=== PATIENT | female | born 2005 | race Caucasian/White ===

== ENCOUNTER 2023-02-17 11:51 | Emergency (ER) | payer BC, SELFPAY ==
[2023-02-17 12:04] VITALS: BP 122/86; PULSE 103; RESP 16; TEMP 35.9; O2SAT 100
--- NOTE | 2023-02-17 12:08 | ED.ANXIETY ---
HPI - Anxiety General Chief Complaint: Anxiety Stated Complaint: Cist on chest;Anxiety Time Seen by Provider: 02/17/23 12:05 Source: patient Mode of arrival: ambulatory Limitations: no limitations History of Present Illness HPI narrative: Tg is a 17-year-old female patient presenting to the clinic today with complaints of acute onset of anxiety and a cyst on her chest wall. She reports she has had this is of most of her life however it has become more painful over the last few days. States she had a panic attack last night because she was having pain around the cyst and felt as though she was going to . She reports she feels slightly anxious at this time but her anxiety has improved. No redness, swelling, drainage or erythema noted. Related Data Home Medications Medication Instructions Recorded Confirmed amitriptyline 10 mg tablet 10 mg PO DAILY 02/17/23 02/17/23 Allergies Allergy/AdvReac Type Severity Reaction Status Date / Time No Known Allergies Allergy Verified 02/17/23 12:05 Review of Systems Review of Systems: Pertinent positives per HPI. Patient denies any fever, chills, rash, headache, visual changes, dizziness, cough, runny nose, sore throat, shortness of breath, chest pain, palpitations, nausea, vomiting, diarrhea, constipation, abdominal pain, or any urinary issues. PMFSH Comments At the time of my signature, I reviewed and agree with the nursing past medical, surgical, social, and family history. There is no relevant family history pertinent to the patient complaint. Exam Narrative: General: Well-developed, obese, slightly anxious appearing Head: Normocephalic, atraumatic. Cardio: Regular rate and rhythm, s1 and s2 normal, no murmur appreciated. Resp: Clear to auscultation bilaterally, no rhonchi, rales, wheezing or rubs. Integumentary: [place], warm, and dry, 1 cm x 1 cm subcutaneous cyst to the anterior chest wall- within the top breast cleavage, firm and tender to palpate- dimpled area, no drainage, redness, or erythema. Course Course Emergency Course: Portions of this record may have been created with voice recognition software. Level of Care: Express Care Visit Vital Signs Vital signs: Vital signs reviewed MDM - Anxiety MDM Narrative Medical decision making narrative: At the time of visit patient is resting comfortably on the exam table. I suspect patient has a subcutaneous cyst to her anterior chest wall. Patient also has anxiety about the cyst. Recommend follow-up with her PCP to further investigate anxiety. Recommend follow-up with a general surgeon to discuss removal of systems as this is causing her pain and obvious anxiety. Supportive measures were discussed with the patient she voiced understanding of discharge instructions and agrees to treatment plan. Differential Diagnosis Differential diagnosis: Likely panic disorder, acute anxiety and other (Subcutaneous cyst to the anterior chest wall) Discharge Plan Discharge Clinical Impression: Acute anxiety, Cyst of skin Patient Disposition: Home, Self-Care Condition: Stable Instructions: Antibiotic Form, Anxiety (ED), Cyst (ED) Additional Instructions: I suspect you have a skin cyst to the anterior chest wall Surgical referral given-contact Dr. Leal office to discuss visit/evaluation May take Benadryl as needed for periods of anxiety-recommend follow-up with your PCP to further investigate this with blood work and screening Increase fluids and stay well hydrated May take Tylenol/Motrin as needed for pain Follow-up with your PCP next week Prescriptions: No Action amitriptyline 10 mg tablet 10 mg PO DAILY Follow-up/Referrals: Jade Chi MD [Physician] - 1 Day (Painful skin cyst to the anterior chest wall) PHYSICIAN,SECURITY ARCHITECT [Primary Care Provider] - Time of Disposition: 12:25 Quality NIHSS Nursing Documentation ED NIHSS nursing documentation: reviewed/agree
== END 2023-02-17 12:29 | disposition home or self-care (01) ==
PROVIDERS: Emergency Provider Nurse Practitioner Family
DX: F41.9 Anxiety disorder, unspecified (principal); L72.9 Follicular cyst of the skin and subcutaneous tissue, unspecified
CPT/HCPCS: 99212; G0463

== ENCOUNTER 2023-02-17 13:05 | Emergency (ER) | payer BC, SELFPAY ==
--- NOTE | ~2023-02-17 | XR_ITS ---
EXAMINATION: XR chest 2V DATE: 02/17/2023 14:25 INDICATION: Chest pain TECHNIQUE: PA and lateral views of the chest were obtained. COMPARISON: None FINDINGS: The lungs are clear with no focal airspace opacities, pulmonary edema, pleural effusion or pneumothor ax. The cardiomediastinal silhouette is normal. Mild thoracic levocurvature. 2.4 x 1.8 x 1.1 cm nodul ar density in the presternal soft tissues. IMPRESSION: 1. No acute cardiopulmonary disease. 2. 2.4 x 1.8 x 1.1 cm nodular density in the presternal soft tissues at the upper inner left breast. Consider ultrasound for further evaluation. Reviewed, dictated and finalized at location A. IMPRESSION: 1. No acute cardiopulmonary disease. 2. 2.4 x 1.8 x 1.1 cm nodular density in the presternal soft tissues at the upp er inner left breast. Consider ultrasound for further evaluation.
[2023-02-17 13:35] VITALS: BP 121/80; PULSE 84; RESP 18; TEMP 36.3; O2SAT 100
--- NOTE | 2023-02-17 13:38 | ECG_ITS ---
Measurements Intervals [place] Rate: 94 P: 59 OH: 142 QRS: 84 QRSD: 77 T: 52 QT: 329 QTc: 413 Interpretive Statements SINUS RHYTHM NORMAL ECG NO PREVIOUS ECG AVAILABLE FOR COMPARISON Electronically Signed On 02-17-2023 15:01:02 CDT by Brent Callaway M.D.
[2023-02-17 13:55] LABS: Basophils Percent Auto 0.4 % (0.2-1.2); Eosinophils Absolute Auto 0.1 K/mm3 (0-0.3); Eosinophils Percent Auto 1.4 % (0-4.4); Hematocrit 43.2 % (37.0-47.0); Hemoglobin 13.6 g/dL (12.0-15.0); Immature Granulocyte Absolute 0.01 K/mm3 (0.00-0.031); Immature Granulocyte Percent A 0.2 % (0-0.5); Lymphocytes Absolute Auto 1.51 K/mm3 (0.9-3.2); Lymphocytes Percent Auto 30.7 % (18.3-44.2); Mean Corpuscular HGB Conc 31.5 g/dl (32-36); Mean Corpuscular Hemoglobin 27.8 pg (26-34); Mean Corpuscular Volume 88.3 fl (80-100); Monocytes Absolute Auto 0.3 K/mm3 (0.1-0.6); Monocytes Percent Auto 5.3 % (2.6-8.5); Neutrophils Absolute Auto 3.1 K/mm3 (1.3-6.7); Platelet Count Result 204 k/mm3 (150-375); Red Blood Count 4.89 M/mm3 (4.2-5.4); Red Cell Distribution Width 13.6 % (11.5-14.5); White Blood Count 4.9 K/mm3 (4.5-10.0)
[2023-02-17 14:08] LABS: Alanine Aminotransferase 17 U/L (6-35); Albumin Level 4.5 g/dL (3.7-5.6); Alkaline Phosphatase 88 U/L (45-116); Anion Gap 9 mmol/L (8-16); Aspartate Amino Transferase 24 U/L (14-36); Bilirubin,Total 0.6 mg/dL (0.2-1.3); Blood Urea Nitrogen 14 mg/dL (8-21); Calcium 9.3 mg/dL (8.9-10.7); Carbon Dioxide 24 mmol/L (22-30); Chloride 106 mmol/L (98-107); Estimated CRCL calculation 153 ml/min; Estimated Glomerular Filt Rate > 60; Glucose 88 mg/dL (65-110); Lipase 49 U/L (23-300); Potassium 4.3 mmol/L (3.4-5.0); Sodium 139 mmol/L (134-143)
[2023-02-17 14:20] LABS: Troponin I < 0.012 ng/mL (0.000-0.034)
--- NOTE | 2023-02-17 14:53 | ED.CHESTPAIN ---
HPI - Chest Pain General Chief Complaint: Chest Pain Stated Complaint: chest pain Time Seen by Provider: 02/17/23 14:42 History of Present Illness HPI narrative: Pt presents with Cp since yesterday evening. Pt says when she thinks about it, it goes away and then she notices it again. Pt says she has a cyst near her breast bone and not sure if it is causing the pain. Pt has no risk factors. Related Data Home Medications Medication Instructions Recorded Confirmed amitriptyline 10 mg tablet 10 mg PO DAILY 02/17/23 02/17/23 Allergies Allergy/AdvReac Type Severity Reaction Status Date / Time No Known Allergies Allergy Verified 02/17/23 13:05 Review of Systems Review of Systems: All systems reviewed & are unremarkable except as noted in HPI and below Exam Const: General: healthy appearing Nutritional Appearance: well nourished Orientation/consciousness: patient oriented x3 Limitations: no limitations Chest: Chest palpation & inspection: normal inspection of the chest and tenderness (right upper chest intercostal muscles, cyst below this near stenum) Resp: Effort & Inspection: normal respiratory effort Cardio: Rate: regular rate Rhythm: regular rhythm GI: GI Palp: Yes Soft to palpation Auscultation: normal bowel sounds Skin: General skin exam: normal color Neuro: General: patient oriented x3, moves all extremities, no focal motor deficits and CN's II-XI intact bilaterally Speech: normal speech Extrem: General: normal to inspection and no clubbing, cyanosis or edema Psych: Mental Status: mental status grossly normal Affect: normal affect Course Vital Signs Vital signs: Vital Signs Temperature 97.3 F L 02/17/23 13:35 Pulse Rate 84 02/17/23 13:35 Respiratory Rate 18 02/17/23 13:35 Blood Pressure 121/80 02/17/23 13:35 Pulse Oximetry 100 02/17/23 13:35 Oxygen Delivery Room Air 02/17/23 13:35 Temperature 97.3 F L 02/17/23 13:35 Pulse Rate 84 02/17/23 13:35 Respiratory Rate 18 02/17/23 13:35 Blood Pressure 121/80 02/17/23 13:35 Pulse Oximetry 100 02/17/23 13:35 Oxygen Delivery Room Air 02/17/23 13:35 MDM - Chest Pain MDM Narrative Medical decision making narrative: seems very muscular labs and ekg and cxr to rule out serious issue. labs and cxr non acute Differential Diagnosis Differential diagnosis: Likely atypical chest pain, costochondritis and chest pain Lab Data 02/17/23 13:44 02/17/23 13:44 Labs: Lab Results 02/17/23 Range/Units 13:44 WBC 4.9 (4.5-10.0) K/mm3 RBC 4.89 (4.2-5.4) M/mm3 Hgb 13.6 (12.0-15.0) g/dL Hct 43.2 (37.0-47.0) % MCV 88.3 (80-100) fl MCH 27.8 (26-34) pg MCHC 31.5 L (32-36) g/dl RDW 13.6 (11.5-14.5) % Plt Count 204 (150-375) k/mm3 MPV 11.0 H (7.4-10.4) fl Immature Gran % (Auto) 0.2 (0-0.5) % Neut % (Auto) 62.0 (45.5-73.1) % Lymph % (Auto) 30.7 (18.3-44.2) % [place] % (Auto) 5.3 (2.6-8.5) % Eos % (Auto) 1.4 (0-4.4) % Baso % (Auto) 0.4 (0.2-1.2) % Lymph # (Auto) 1.51 (0.9-3.2) K/mm3 [place] # (Auto) 0.3 (0.1-0.6) K/mm3 Eos # (Auto) 0.1 (0-0.3) K/mm3 Baso # (Auto) 0.0 (0.0-0.1) K/mm3 Abs Immat Gran (auto) 0.01 (0.00-0.031) K/mm3 Absolute Neuts (auto) 3.1 (1.3-6.7) K/mm3 Absolute Nucleated RBC 0.0 (0.0-0.012) K/mm3 Nucleated RBC % 0.0 (0.0-0.2) % PT Cancelled INR Cancelled APTT Cancelled Sodium 139 (134-143) mmol/L Potassium 4.3 (3.4-5.0) mmol/L Chloride 106 (98-107) mmol/L Carbon Dioxide 24 (22-30) mmol/L Anion Gap 9 (8-16) mmol/L BUN 14 (8-21) mg/dL Creatinine 0.60 L (0.7-1.0) mg/dL Estim Creat Clear Calc 153 ml/min Estimated GFR > 60 (59 - ) Glucose 88 (65-110) mg/dL Calcium 9.3 (8.9-10.7) mg/dL Total Bilirubin 0.6 (0.2-1.3) mg/dL AST 24 (14-36) U/L ALT 17 (6-35) U/L Alkaline Phosphatase 88 (45-116) U/L Troponin I < 0.012 (0.000-0.034) ng/mL Total Protein 8
== END 2023-02-17 16:24 | disposition home or self-care (01) ==
LOC: ANHED 15:10
PROVIDERS: Emergency Provider Emergency Medicine
DX: R07.89 Other chest pain (principal); R92.8 Other abnormal and inconclusive findings on diagnostic imaging of breast
CPT/HCPCS: 36415; 71046; 80053; 83690; 84484; 85025; 85610; 85730; 93005; 99284

== ENCOUNTER 2023-08-06 14:09 | Emergency (ER) | payer BC, SELFPAY ==
--- NOTE | ~2023-08-06 | CT_ITS ---
EXAMINATION: CT abdomen pelvis w con DATE: 08/06/2023 17:08 INDICATION: Right mid and lower abdominal pain TECHNIQUE: Computed tomography (CT) of the abdomen and pelvis was performed with 100 cc Omnipaque 350 intravenous contrast. The dose-length product was 1210.12 mGy-cm. Automated exposure control and ite rative reconstruction technique were employed. COMPARISON: Chest dated 02/17/2023 FINDINGS: Heart size normal. No significant pleural or pericardial effusion. There is splenomegaly. S mall subcentimeter hypodensity of the left hepatic lobe, most likely phrygian cap of the gallbladder or cysts. The pancreas, adrenal glands and left kidney are unremarkable. There is a 2 mm nonobstructi ng right renal stone. Gallbladder is present. Nonobstructive bowel gas pattern. Normal appendix. No a bnormal pelvic masses or fluid collections. There is no significant pleural vascular abnormality or l ymphadenopathy. No free air or free fluid. No evidence for hernia. IMPRESSION: 1. Nonobstructing right nephrolithiasis. 2: Splenomegaly. Reviewed, dictated and finalized at location A.
[2023-08-06 14:09] VITALS: BP 117/77; PULSE 85; RESP 16; TEMP 36.3; O2SAT 100
--- NOTE | 2023-08-06 15:49 | ED.ABDPAIN ---
HPI - Abdominal Pain General Chief Complaint: Abdominal Pain <Cl Wagoner APRN - Last Filed: 08/06/23 18:16> Stated Complaint: abd pain <Cl Wagoner APRN - Last Filed: 08/06/23 18:16> Time Seen by Provider: 08/06/23 15:50 <Cl Wagoner APRN - Last Filed: 08/06/23 18:16> Focused HPI: Tg is a 18-year-old female patient presenting to the clinic today with complaints of lower abdominal pain radiating into right back with associated nausea and vomiting. General: Well-developed, well nourished, in no apparent distress. Head: Normocephalic, atraumatic. Cardio: Regular rate and rhythm, s1 and s2 normal, no murmur appreciated. Resp: Clear to auscultation bilaterally, no rhonchi, rales, wheezing or rubs. Abdomen: Soft, pliable, bowel sounds present in all quadrants, tender to palpation over the mid and writes that side of the abdomen no organomegly, no CVAT tenderness. Patient screened in triage and initial orders placed. Additional care and disposition to be based upon diagnostic testing and treatment. <Cl Wagoner APRN - Last Filed: 08/06/23 18:16> Source: patient <Cl Wagoner APRN - Last Filed: 08/06/23 18:16> Mode of arrival: ambulatory <Cl Wagoner APRN - Last Filed: 08/06/23 18:16> Limitations: no limitations <Cl Wagoner APRN - Last Filed: 08/06/23 18:16> History of Present Illness HPI narrative: The patient is a 18-year-old female who presents ER with left-sided abdominal pain. Began in the lower abdomen radiating into the right back. Associated nausea vomiting and was very intense. Only occurred a couple times. Has mild urinary frequency but no dysuria. Denies fevers or chills or sweats. No known sick contacts. No history of pyelonephritis or kidney stones. No history of ovarian cyst. Cannot identify any aggravating or alleviating factors. <Javi Pollard MD - Last Filed: 08/06/23 18:19> Related Data Home Medications: Home Medications Medication Instructions Recorded Confirmed amitriptyline 10 mg tablet 10 mg PO DAILY 02/17/23 02/17/23 <Cl Wagoner APRN - Last Filed: 08/06/23 18:16> Allergies/Adverse Reactions: Allergies Allergy/AdvReac Type Severity Reaction Status Date / Time No Known Allergies Allergy Verified 02/17/23 13:05 <Cl Wagoner APRN - Last Filed: 08/06/23 18:16> Review of Systems Review of Systems: All systems reviewed & are unremarkable except as noted in HPI and below <Javi Pollard MD - Last Filed: 08/06/23 18:19> Constitutional: Constitutional: Reports no additional constitutional complaints <Javi Pollard MD - Last Filed: 08/06/23 18:19> ENT: Reports system reviewed and no additional complaints, except as documented <Javi Pollard MD - Last Filed: 08/06/23 18:19> Cardiovascular: Cardiovascular: Reports no additional cardiovascular complaints <Javi Pollard MD - Last Filed: 08/06/23 18:19> Respiratory: Respiratory: Reports no additional respiratory complaints <Javi Pollard MD - Last Filed: 08/06/23 18:19> Gastrointestinal: Gastrointestinal: Reports abdominal pain, Reports nausea and Reports vomiting <Javi Pollard MD - Last Filed: 08/06/23 18:19> Genitourinary: Genitourinary: Reports as per HPI <Javi Pollard MD - Last Filed: 08/06/23 18:19> [facility] Past Medical History Medical History: Medical History (Updated 08/06/23 @ 18:18 by Javi Pollard MD) Healthy female adult <Cl Wagoner APRN - Last Filed: 08/06/23 18:16> Surgical History Surgical History: Surgical History (Updated 08/06/23 @ 18:18 by Javi Pollard MD) No pertinent past surgical history <Cl Wagoner APRN - Last Filed: 08/06/23 18:16> Comments At the time of my signature, I reviewed and agree with the nursing past medical, surgical, social, and family history. There is no releva
[2023-08-06 16:21] LABS: Appearance Urine Cloudy (Clear); Bacteria Urine 1+ /hpf; Bilirubin Urine Negative (Negative); Blood Urine 2+ (Negative); Color Urine Yellow (Yellow); Glucose Urine UA Negative (Negative); Ketones Urine Negative (Negative); Leukocyte Esterase Ur 1+ LEU/UL (Negative); Nitrate Urine Negative (Negative); Non Pathogenic Casts 0-2; Protein Urine Negative (Negative); Squamous Epithelial Cell Urine Few /hpf (Few); Urobilinogen Urine 0.2 mg/dL (<2.0); pH Urine 5.5 (5.0-9.0)
[2023-08-06 16:27] LABS: Basophils Percent Auto 0.3 % (0.2-1.2); Eosinophils Percent Auto 0.6 % (0-4.4); Hematocrit 40.7 % (37.0-47.0); Hemoglobin 13.2 g/dL (12.0-15.0); Immature Granulocyte Absolute 0.04 K/mm3 (0.00-0.031); Immature Granulocyte Percent A 0.6 % (0-0.5); Lymphocytes Absolute Auto 1.38 K/mm3 (0.9-3.2); Lymphocytes Percent Auto 21.1 % (18.3-44.2); Mean Corpuscular HGB Conc 32.4 g/dl (32-36); Mean Corpuscular Hemoglobin 28.4 pg (26-34); Mean Corpuscular Volume 87.7 fl (80-100); Mean Platelet Volume 11.5 fl (7.4-10.4); Monocytes Absolute Auto 0.3 K/mm3 (0.1-0.6); Monocytes Percent Auto 4.7 % (2.6-8.5); Neutrophils Absolute Auto 4.7 K/mm3 (1.3-6.7); Neutrophils Percent Auto 72.7 % (45.5-73.1); Platelet Count Result 224 k/mm3 (150-375); Red Blood Count 4.64 M/mm3 (4.2-5.4); Red Cell Distribution Width 13.2 % (11.5-14.5); White Blood Count 6.5 K/mm3 (4.5-10.0)
[2023-08-06 16:34] LABS: Alanine Aminotransferase 17 U/L (6-35); Albumin Level 4.5 g/dL (3.5-5.1); Alkaline Phosphatase 110 U/L (38-126); Anion Gap 7 mmol/L (4-12); Aspartate Amino Transferase 31 U/L (14-36); Bilirubin,Total 0.7 mg/dL (0.2-1.3); Blood Urea Nitrogen 10 mg/dL (7-17); Calcium 9.7 mg/dL (8.4-10.2); Carbon Dioxide 24 mmol/L (22-30); Chloride 108 mmol/L (98-107); Estimated CRCL calculation 688 ml/min; Estimated Glomerular Filt Rate > 60; Glucose 94 mg/dL (65-110); Lipase 57 U/L (23-300); Potassium 4.2 mmol/L (3.4-5.0); Sodium 139 mmol/L (137-145)
[2023-08-06 16:36] LABS: Add Urine Microscopic? YES
== END 2023-08-06 18:23 | disposition home or self-care (01) ==
PROVIDERS: Nurse Practitioner Family; Emergency Provider Emergency Medicine
DX: N39.0 Urinary tract infection, site not specified (principal); R16.1 Splenomegaly, not elsewhere classified; N20.0 Calculus of kidney
CPT/HCPCS: 36415; 74177; 80053; 81001; 81025; 83690; 85025; 87086; 99284; Q9967